=== PATIENT | female | born 1975 | race Caucasian/White ===

== ENCOUNTER 2025-07-12 06:24 | Day surgery (SDC) | payer BC, SELFPAY | END 2025-07-12 13:25 | disposition home or self-care (01) | LOC: GI 06:24 | PROVIDERS: ATTENDING PHYSICIAN Internal Medicine Gastroenterology | DX: Z12.11 Encounter for screening for malignant neoplasm of colon (principal); K57.30 Diverticulosis of large intestine without perforation or abscess without bleeding; K64.8 Other hemorrhoids; D12.2 Benign neoplasm of ascending colon | CPT/HCPCS: 45385; 88305 ==

== ENCOUNTER → 2025-08-06 15:08 | Outpatient (REF) | payer BC, SELFPAY | LOC: HWWDC 15:08 | PROVIDERS: ATTENDING PHYSICIAN Family Medicine | DX: Z12.31 Encounter for screening mammogram for malignant neoplasm of breast (principal) | CPT/HCPCS: 77063; 77067 ==

== ENCOUNTER → 2025-08-20 08:23 | Outpatient (REF) | payer BC, SELFPAY | LOC: WDC 08:23 | PROVIDERS: ATTENDING PHYSICIAN Family Medicine | DX: R92.8 Other abnormal and inconclusive findings on diagnostic imaging of breast (principal) | CPT/HCPCS: 76642 ==